=== PATIENT | male | born 1935 | race Caucasian/White ===

== ENCOUNTER → 2016-09-27 | Outpatient (CLI) | payer MEDICARE, OTHER | LOC: RAD 15:07 | PROVIDERS: ATTEND Family Medicine | DX: R60.0 Localized edema (principal) ==

== ENCOUNTER 2016-10-12 06:27 | Day surgery (SDC) | payer MEDICARE, OTHER ==
[~2016-10-12] VITALS: Ht 175.3 cm; Wt 69.0 kg
[~2016-10-12 06:27] MED LIST: LACTATED RINGERS 1,000 ML IV SCH; SODIUM CHLORIDE FLUSH 3 ML SYR IV PRN
[2016-10-12 06:44] VITALS: BP 158/73
[2016-10-12] MEDS ORDERED: LIDOCAINE 4% TOPICAL 4.5 ML SYR ONE (06:50)
[2016-10-12] MEDS ORDERED: SIMETHICONE 40 MG/0.6 ML (MYLICON DROPS) ORAL SYRINGE ONE (06:50)
[2016-10-12] MEDS ORDERED: LIDOCAINE 2% BOLUS 100 MG/5 ML (XYLOCAINE) SYRINGE ONE (07:08)
[2016-10-12] MEDS ORDERED: PROPOFOL 20 ML IV ONE (07:08)
[2016-10-12] MEDS ORDERED: MIDAZOLAM 2 MG/2 ML (VERSED) VIAL ONE (07:09)
[2016-10-12] MEDS ORDERED: ALFENTANIL 500 MCG/ML (ALFENTA) 5 ML AMP IV ONE (07:09)
[2016-10-12 07:59] VITALS: BP 138/75
[2016-10-12 08:34] VITALS: BP 154/72
== END 2016-10-12 08:38 | disposition home or self-care (01) ==
LOC: ASC 06:27
PROVIDERS: ATTEND Surgery
DX: K20.8 Other esophagitis (principal); Z87.19 Personal history of other diseases of the digestive system; K31.7 Polyp of stomach and duodenum
CPT/HCPCS: 43239; 43249; 88305; 88312; A9270; C1726; J2250; J7120

== ENCOUNTER → 2016-11-22 | Outpatient (CLI) | payer MEDICARE, OTHER ==
[~2016-11-22] MED LIST changes: -LACTATED RINGERS 1,000 ML IV SCH; +ROPIVACAINE 1% 10 MG/ML (NAROPIN) 10 ML AMPUL ONE; -SODIUM CHLORIDE FLUSH 3 ML SYR IV PRN; +SODIUM CHLORIDE VIAL (PF) 10 ML IV ONE; +methylPREDNISolone 80 MG/ML (DEPO MEDROL) VIAL IM ONE
== END ==
LOC: PMC 10:44
PROVIDERS: ATTEND Family Medicine
DX: M46.1 Sacroiliitis, not elsewhere classified (principal); M54.41 Lumbago with sciatica, right side
CPT/HCPCS: G0260; J1040; J2795; J7050

== ENCOUNTER → 2017-01-07 | Outpatient (CLI) | payer MEDICARE, OTHER ==
[~2017-01-07] MED LIST changes: +ACET-2264 PO; +ATOR20TA PO; +B12/1TAB PO; +CLOP75TA3 PO; +CYAN250T PO; +CYCL5TAB PO; +DOCU50CA4 PO; +FLC1T PO; +FOLI0.4T4 PO; +LORA10TA7 PO; +MGX400T PO; +MULT-955 PO; +OMEG1CAP PO; +PANT40TA3 PO; +POTA10CA43 PO; +POTA99TA16 PO; +PREG50C PO; -ROPIVACAINE 1% 10 MG/ML (NAROPIN) 10 ML AMPUL ONE; -SODIUM CHLORIDE VIAL (PF) 10 ML IV ONE; +SULF500T7 PO; +VITA1TAB78 PO
--- NOTE | 2017-01-07 11:03 | PAIN MANAGEMENT ---
Date of note: 01/07/2017 Procedure: Epidural steroid injection at L4-5 with fluoroscopic guidance Total fluoroscopic exposure time: 32 seconds This is an 81-year-old patient of Dr. Walker Garcia. The patient presents with a longstanding history of low back pain. He has been particularly been suffering for the last 4 months. We have tried a sacroiliac joint injection for him, which has not provided much relief. He does have radicular symptoms in the dermatome level of L4. Informed consent was achieved for an epidural steroid injection at L4-5 with fluoroscopic guidance. Orders for procedure verified. Patient denies any bleeding tendencies. After informed consent obtained, the patient was positioned for the lumbar epidural steroid injection under fluoroscopy. The area was prepped and draped using aseptic technique. The skin and overlying tissues were localized using 3 mL of 1% Preservative-Free lidocaine using a 25-gauge 1.5-inch needle. A 20-gauge Tuohy needle was advanced, using "loss of resistance" technique, to the epidural space. No blood, cerebral spinal fluid, pain, or paresthesia noted on entry of the epidural space. A 1 mL solution of Depo-Medrol 80 mg was injected slowly without mass volume effect. The patient was placed in supine position 15 minutes prior to being released with proper leg strength and vitals. Pre- and post procedure vital signs stable with no sensory or motor deficit noted. Instruction on followup contact and care provided to the patient.
== END ==
LOC: PMC 08:57 → EDSTATUS 01-09 09:00
PROVIDERS: ATTEND Family Medicine
DX: M54.16 Radiculopathy, lumbar region (principal); I10 Essential (primary) hypertension; Z86.718 Personal history of other venous thrombosis and embolism
CPT/HCPCS: 62323; J1040

== ENCOUNTER → 2017-01-21 | Outpatient (CLI) | payer MEDICARE, OTHER ==
[~2017-01-21] MED LIST changes: -methylPREDNISolone 80 MG/ML (DEPO MEDROL) VIAL IM ONE
--- NOTE | 2017-01-21 14:51 | Diagnostic Imaging Report ---
PROCEDURE: US Abdomen, limited. TECHNIQUE: Multiple realtime grayscale images were obtained over the abdomen in various projections. INDICATION: Abnormal liver function tests. Gynecomastia. Heavy Tylenol usage. FINDINGS: The liver is of normal size and echogenicity. The common bile duct diameter was upper normal at 6 mm. Hepatic ducts are normal. No focal hepatic lesion is seen. Hepatopedal flow is present in the main portal vein. The gallbladder is surgically absent. The pancreas cannot be visualized adequately for assessment. Portions of the body and head were seen. Right kidney was negative. No free fluid is identified. The proximal and midabdominal aorta were visualized. The distal abdominal aorta was obscured by bowel gas. The proximal and mid abdominal aorta showed atheromatous plaquing with no ectasia. IMPRESSION: 1. Postoperative cholecystectomy. Otherwise unremarkable study. Dictated by: Dictated on workstation # [id number]
== END ==
LOC: RAD 13:31
PROVIDERS: ATTEND Family Medicine
DX: N62 Hypertrophy of breast (principal); Z90.49 Acquired absence of other specified parts of digestive tract
CPT/HCPCS: 76705

== ENCOUNTER → 2017-01-25 | Outpatient (CLI) | payer MEDICARE, OTHER ==
--- NOTE | 2017-01-25 10:24 | Diagnostic Imaging Report ---
PROCEDURE: MRI pelvis with and without contrast. TECHNIQUE: Multiplanar, multisequence MRI of the pelvis was performed with and without contrast. INDICATION: Lower back/SI joint pain. COMPARISON: Lumbar spine MRI of 05/14/2016. FINDINGS: The joint spaces of both SI joints are maintained. Specifically, no ankylosis. No acute or chronic marginal erosions of the SI joints. No enhancing osteitis about the SI joints. The lumbosacral plexus is normal where seen. No abnormal enhancement within the visualized paraspinal musculature or pelvis. No free pelvic fluid. Lumbar spine is partially imaged and there is degenerative levocurvature of the lower lumbar spine. There is enhancing endplate edema at L4-L5 which is similar to prior examination of 2016. IMPRESSION: 1. No acute or chronic sacroiliitis. No substantial degenerative changes within the SI joints. 2. Although incompletely imaged, degenerative levocurvature of the lumbar spine is noted along with enhancing degenerative endplate edema at L4-L5. This could account for patient's low back pain given the associated enhancement which indicates active inflammation. Dictated by: Dictated on workstation # [id number]
== END ==
LOC: RAD 08:20
PROVIDERS: ATTEND Internal Medicine Rheumatology
DX: M54.5 Low back pain (principal)
CPT/HCPCS: 72197; A9579